=== PATIENT | female | born 1990 | race Caucasian/White ===

== ENCOUNTER 2021-02-16 20:53 | Emergency (ER) | payer OTHER ==
[2021-02-16 20:57] VITALS: BP 120/79; PULSE 83; RESP 20; TEMP 98.6
[2021-02-16] MEDS ORDERED: ONDANSETRON 4 MG ODT STARTER PACK 2 TAB BTL PO STA (21:17)
--- NOTE | 2021-02-16 21:21 | ED ---
Skin/Abscess/FB HPI - General Chief complaint: Skin/Abscess/Foreign Body Stated complaint: abscess Time Seen by Provider: 02/16/21 21:02 Source: patient Mode of arrival: ambulatory Limitations: no limitations - History of Present Illness Initial comments: Patient is a 30-year-old female presenting to the emergency department for a recheck of an abscess on her right gluteal. She states she noticed a small pimple in the area about 5 days ago, she came into the ER 2 days ago for an I&D. She was placed on Bactrim and Keflex and has been doing warm soaks. She states this evening about an hour prior to arrival she noticed a lot of drainage from the area including blood and "abscessed tissue." Her family members became concerned and told her she has come back in for reevaluation. During her previous ER visit they did outline the area and she states the redness has not been outside of the mind area. She's had no fevers, she's had some mild nausea from the antibiotics. She has no diarrhea. She has no further complaints at this time. Her vital signs are stable upon arrival. - Related Data Previous Rx's Medication Instructions Recorded Cephalexin [Keflex] 500 mg PO Q6HR 10 Days #40 cap 02/14/21 Sulfamethox-Tmp 800-160Mg [Bactrim 1 tab PO Q12HR #20 tab 02/14/21 DS 800-160 mg] Allergies Allergy/AdvReac Type Severity Reaction Status Date / Time Opioids - Morphine Analogues AdvReac Rapid Verified 02/16/21 20:57 Heart Rate Review of Systems ROS Statement: Those systems with pertinent positive or pertinent negative responses have been documented in the HPI. ROS Other: All systems not noted in ROS Statement are negative. Past Medical History Additional Past Medical History / Comment(s): twisted disc in back. History of Any Multi-Drug Resistant Organisms: None Reported Past Surgical History: Orthopedic Surgery Past Psychological History: ADD/ADHD Smoking Status: Never smoker Past Alcohol Use History: None Reported Past Drug Use History: None Reported General Exam - General Exam Comments Initial Comments: GENERAL: Patient is well-developed and well-nourished. Patient is nontoxic and in no acute distress. HEAD: Atraumatic, normocephalic. EYES: Pupils equal round and reactive to light, extraocular movements intact, sclera anicteric, conjunctiva are normal. Eyelids were unremarkable. LUNGS: Unlabored respirations. Breath sounds clear to auscultation bilaterally and equal. No wheezes rales or rhonchi. HEART: Regular rate and rhythm without murmurs, rubs or gallops. ABDOMEN: Soft, nontender, normoactive bowel sounds. No guarding, no rebound. No masses appreciated. MUSCULOSKELETAL: Normal extremities with adequate strength and normal range of motion, no pitting or edema. No clubbing or cyanosis. NEUROLOGICAL: Patient is alert and oriented x 3. Normal speech, normal gait. PSYCH: Normal mood, normal affect. SKIN: Warm, Dry, normal turgor. Patient has a 1 cm opened abscess on her right gluteal, there is some very mild surrounding erythema but no fluctuance, no induration. The redness is not outside of the outlined area from 2 days ago. Limitations: no limitations Course Vital Signs 02/16/21 20:54 Temperature 98.6 F Pulse Rate 83 Respiratory 20 Rate Blood Pressure 120/79 O2 Sat by Pulse 99 Oximetry Medical Decision Making - Medical Decision Making Patient is a 30-year-old female here for a recheck of an abscess on her right gluteal from 2 days ago. She had an I&D performed 2 days ago, was placed on Bactrim and Keflex. She has been taking his medications as prescribed, she's been doing warm soaks and warm compresses. She had onset of drainage about an hour prior to arrival of blood and possibly got concerned. Patient's wound looks well, does not appear to be getting worse. It is not outside of the outlined area from 2 days ago. I discussed with patient that this looks stable, recommended continue with her antibiotics. I will give her some Zofran for the nausea. Return parameters were discussed with her and she verbalized understanding. She doesn't a point with her PCP in a few days. Case discussed with Dr. Serrano. Disposition Clinical Impression: Abscess Disposition: HOME SELF-CARE Condition: Stable Instructions (If sedation given, give patient instructions): Abscess Incision and Drainage (ED) Additional Instructions: Please return to the Emergency Department if symptoms worsen or any other concerns. Continue with your already prescribed antibiotics. May take Zofran every 8 hrs for any nausea or vomiting. Follow up with your primary care physician. Is patient prescribed a controlled substance at d/c from ED?: No Referrals: Tiffani Rhoades DO [Primary Care Provider] - 1-2 days Time of Disposition: 21:21
== END 2021-02-16 21:34 | disposition home or self-care (01) ==
LOC: EC 20:53
DX: L02.31 Cutaneous abscess of buttock (principal); F90.9 Attention-deficit hyperactivity disorder, unspecified type
CPT/HCPCS: 99282; S0119

== ENCOUNTER 2022-11-28 21:03 | Inpatient (IN) | payer OTHER ==
[2022-11-28] MEDS ORDERED: SODIUM CHLORIDE 0.9% 1,000 ML IV ONE (22:01)
--- NOTE | 2022-11-28 22:15 | XR ---
EXAMINATION TYPE: XR chest 2V DATE OF EXAM: 11/28/2022 10:09 PM COMPARISON: None TECHNIQUE: XR chest 2V . CLINICAL INDICATION:Female, 32 years old with history of difficulty breathing; FINDINGS: Lungs/Pleura: There is no evidence of pleural effusion, focal consolidation, or pneumothorax. Pulmonary vascularity: Unremarkable. Heart/mediastinum: Cardiomediastinal silhouette is unremarkable. Musculoskeletal: No acute osseous pathology. IMPRESSION: No acute cardiopulmonary disease/process.
--- NOTE | 2022-11-28 22:25 | ED ---
SOB HPI - General Chief Complaint: Shortness of Breath Stated Complaint: Shortness of breath, nausea Time Seen by Provider: 11/28/22 21:41 Source: patient Mode of arrival: ambulatory Limitations: no limitations - History of Present Illness Initial Comments: Patient is a 32-year-old female presenting with chief complaint of shortness of breath. Patient states that around 5:30 she started experiencing sudden onset shortness of breath and chest pressure. Her fitness watch was reading a resting heart rate of above 100. Patient did not feel a sense of palpitations. She states that she was also experiencing nausea and vomiting at this time which has since resolved. She states that the pain has significantly improved but she is continuing to have shortness of breath, this is only mildly improved. Denies any recent travel, recent surgery, control pills. No history of blood clots. No lower extremity swelling. No abdominal pain. - Related Data Previous Rx's Medication Instructions Recorded Cephalexin [Keflex] 500 mg PO Q6HR 10 Days #40 cap 02/14/21 Sulfamethox-Tmp 800-160Mg [Bactrim 1 tab PO Q12HR #20 tab 02/14/21 DS 800-160 mg] Allergies Allergy/AdvReac Type Severity Reaction Status Date / Time Opioids - Morphine Analogues AdvReac Rapid Verified 02/16/21 20:57 Heart Rate Review of Systems ROS Statement: Those systems with pertinent positive or pertinent negative responses have been documented in the HPI. ROS Other: All systems not noted in ROS Statement are negative. Past Medical History Additional Past Medical History / Comment(s): twisted disc in back. History of Any Multi-Drug Resistant Organisms: None Reported Past Surgical History: Orthopedic Surgery Past Psychological History: ADD/ADHD Smoking Status: Never smoker Past Alcohol Use History: None Reported Past Drug Use History: None Reported General Exam Limitations: no limitations General appearance: alert, in no apparent distress Head exam: Present: atraumatic, normocephalic, normal inspection Eye exam: Present: normal appearance, EOMI. Absent: scleral icterus, periorb ital swelling Neck exam: Present: normal inspection, full ROM Respiratory exam: Present: normal lung sounds bilaterally. Absent: respiratory distress, wheezes, rales, rhonchi, stridor Cardiovascular Exam: Present: normal rhythm, tachycardia, normal heart sounds. Absent: systolic murmur, diastolic murmur, rubs, gallop, clicks Neurological exam: Present: alert, oriented X3, CN II-XII intact Psychiatric exam: Present: normal affect, normal mood Skin exam: Present: warm, dry, intact, normal color. Absent: rash Course Vital Signs 11/28/22 11/29/22 21:12 01:01 Temperature 98.3 F Pulse Rate 119 H 108 H Respiratory 22 16 Rate Blood Pressure 123/68 112/68 O2 Sat by Pulse 96 98 Oximetry Medical Decision Making - Medical Decision Making Was pt. sent in by a medical professional or institution (, PA, [employer], urgent care, hospital, or skilled nursing...) When possible be specific @ -No Did you speak to anyone other than the patient for history (EMS, parent, family, police, friend...)? What history was obtained from this source @ -No Did you review nursing and triage notes (agree or disagree)? Why? @ -I reviewed and agree with nursing and triage notes Were old charts reviewed (outside hosp., previous admission, EMS record, old EKG, old radiological studies, urgent care reports/EKG's, skilled nursing records)? Report findings @ -No old charts were reviewed Differential Diagnosis (chest pain, altered mental status, abdominal pain women, abdominal pain men, vaginal bleeding, weakness, fever, dyspnea, syncope, headache, dizziness, GI bleed, back pain, seizure, CVA, palpatations, mental health, musculoskeletal)? @ -MDM Differential Dyspnea: Coronary syndrome, arrhythmia, tamponade, asthma, COPD, pulmonary embolism, pneumonia, pneumothorax, pulmonary effusion, anaphylaxis, diabetic ketoacidosis, flailed chest, pulmonary contusion, diaphragmatic rupture, anemia, neuromuscular this is not meant to be an all-inclusive list. EKG interpreted by me (3pts min.). @ -Sinus tachycardia ventricular rate 117. VT interval 136. QRS 86. QT 304. QTC 373. Right axis deviation. No ischemic changes. X-rays interpreted by me (1pt min.). @ -Chest x-ray shows no acute process. CT interpreted by me (1pt min.). @ -CTA of the chest shows no evidence of pulmonary embolism. There are focal ground glass pulmonary opacities. Heterogenous mass within the left upper quadrant likely adrenal in origin U/S interpreted by me (1pt. min.). @ -None done What testing was considered but not performed or refused? (CT, X-rays, U/S, labs)? Why? @ -None What meds were considered but not given or refused? Why? @ -None Did you discuss the management of the patient with other professionals (professionals i.e. , PA, [employer], lab, RT, psych nurse, hospice social worker, produce wrapper, teacher, development officer, foster care case manager)? Give summary @ -Discussed with admitting provider Cyn Sandoval Was smoking cessation discussed for >3mins.? @ -No Was critical care preformed (if so, how long)? @ -No Were there social determinants of health that impacted care today? How? (Homelessness, low income, unemployed, alcoholism, drug addiction, transportation, low edu. Level, literacy, decrease access to med. care, snf, re hab)? @ -No Was there de-escalation of care discussed even if they declined (Discuss DNR or withdrawal of care, Hospice)? DNR status @ -No What co-morbidities impacted this encounter? (DM, HTN, Smoking, COPD, CAD, Cancer, CVA, ARF, Chemo, Hep., AIDS, mental health diagnosis, sleep apnea, morbid obesity)? @ -None Was patient admitted / discharged? Hospital course, mention meds given and route, prescriptions, significant lab abnormalities, going to OR and other pertinent info. @ -Patient is a 32-year-old female presenting with chief complaint of shortness of breath and chest pain that started abruptly this evening. On physical examination patient is tachycardic, heart and lungs are clear to auscultation. Lab work shows WBC 16.9. D-dimer is 2.22 and troponin is 0.206. CTA showed no pulmonary embolism, there is a left upper quadrant mass likely adrenal in origin. Elevated troponin likely due to demand ischemia, patient is prophylactically placed on heparin after discussion with my attending physician. Urine shows evidence of UTI, patient given 1 g of Rocephin. Case was discussed with Cyn Sandoval from [facility] hospitalist group who accepted admission. Patient is agreeable with this plan. I discussed this case in detail with my attending Dr. Howard. Undiagnosed new problem with uncertain prognosis? @ -No Drug Therapy requiring intensive monitoring for toxicity (Heparin, Nitro, Insulin, Cardizem)? @ -No Were any procedures done? @ -No Diagnosis/symptom? @ -Adrenal mass Acute, or Chronic, or Acute on Chronic? @ -Acute Uncomplicated (without systemic symptoms) or Complicated (systemic symptoms)? @ Complicated Side effects of treatment? @ -No Exacerbation, Progression, or Severe Exacerbation? @ -No Poses a threat to life or bodily function? How? (Chest pain, USA, MD, pneumonia, PE, COPD, DKA, ARF, appy, cholecystitis, CVA, Diverticulitis, Homicidal, Suicidal, threat to staff... and all critical care pts) @ -Potentially Diagnosis/symptom? @Elevated troponin Acute, or Chronic, or Acute on Chronic? @Acute Uncomplicated (without systemic symptoms) or Complicated (systemic symptoms)? @Complicated Side effects of treatment? @ none Exacerbation, Progression, or Severe Exacerbation] @ no Poses a threat to life or bodily function? @yes - Lab Data Result diagrams: 11/28/22 20:00 11/28/22 22:20 Lab Results 11/28/22 11/28/22 11/28/22 Range/Units 20:00 20:00 22:20 WBC 16.9 H (3.8-10.6) k/uL RBC 5.42 H (3.80-5.40) m/uL Hgb 16.7 H (11.4-16.0) gm/dL Hct 49.9 H (34.0-46.0) % MCV 92.1 (80.0-100.0) fL MCH 30.8 (25.0-35.0) pg MCHC 33.5 (31.0-37.0) g/dL RDW 13.4 (11.5-15.5) % MPV 10.1 PT (9.0-12.0) sec INR (<1.2) APTT (22.0-30.0) sec D-Dimer (<0.60) mg/L FEU Sodium 138 (137-145) mmol/L Potassium 4.8 (3.5-5.1) mmol/L Chloride 101 (98-107) mmol/L Carbon Dioxide 26 (22-30) mmol/L Anion Gap 11 mmol/L BUN 23 H (7-17) mg/dL Creatinine 0.93 (0.52-1.04) mg/dL Est GFR (CKD-EPI)AfAm >90 (>60 ml/min/1.73 sqM) Est GFR (CKD-EPI)NonAf 83 (>60 ml/min/1.73 sqM) Glucose 116 H (74-99) mg/dL Plasma Lactic Acid Chung 1.4 (0.7-2.0) mmol/L Calcium 10.1 (8.4-10.2) mg/dL Magnesium 2.0 (1.6-2.3) mg/dL Total Bilirubin 0.5 (0.2-1.3) mg/dL AST 39 H (14-36) U/L ALT 34 (4-34) U/L Alkaline Phosphatase 81 (38-126) U/L Troponin I (0.000-0.034) ng/mL Total Protein 8.1 (6.3-8.2) g/dL Albumin 4.7 (3.5-5.0) g/dL Urine Color Urine Appearance (Clear) Urine pH (5.0-8.0) Ur Specific [place] (1.001-1.035) Urine Protein (Negative) Urine Glucose (UA) (Negative) Urine Ketones (Negative) Urine Blood (Negative) Urine Nitrite (Negative) Urine Bilirubin (Negative) Urine Urobilinogen (<2.0) mg/dL Ur Leukocyte Esterase (Negative) Urine RBC (0-5) /hpf Urine WBC (0-5) /hpf Urine WBC Clumps Ur Squamous Epith Cells (0-4) /hpf Urine Bacteria (None) /hpf Hyaline Casts (0-2) /lpf Urine Mucus (None) /hpf Urine Yeast (Budding) Urine HCG, Qual (Not Detectd) Coronavirus (PCR) (Not Detectd) 11/28/22 11/28/22 11/28/22 Range/Units 22:20 22:33 22:40 WBC (3.8-10.6) k/uL RBC (3.80-5.40) m/uL Hgb (11.4-16.0) gm/dL Hct (34.0-46.0) % MCV (80.0-100.0) fL MCH (25.0-35.0) pg MCHC (31.0-37.0) g/dL RDW (11.5-15.5) % MPV PT 10.3 (9.0-12.0) sec INR 1.0 (<1.2) APTT 25.1 (22.0-30.0) sec D-Dimer 2.22 H (<0.60) mg/L FEU Sodium (137-145) mmol/L Potassium (3.5-5.1) mmol/L Chloride (98-107) mmol/L Carbon Dioxide (22-30) mmol/L Anion Gap mmol/L BUN (7-17) mg/dL Creatinine (0.52-1.04) mg/dL Est GFR (CKD-EPI)AfAm (>60 ml/min/1.73 sqM) Est GFR (CKD-EPI)NonAf (>60 ml/min/1.73 sqM) Glucose (74-99) mg/dL Plasma Lactic Acid Chung (0.7-2.0) mmol/L Calcium (8.4-10.2) mg/dL Magnesium (1.6-2.3) mg/dL Total Bilirubin (0.2-1.3) mg/dL AST (14-36) U/L ALT (4-34) U/L Alkaline Phosphatase (38-126) U/L Troponin I 0.206 H* (0.000-0.034) ng/mL Total Protein (6.3-8.2) g/dL Albumin (3.5-5.0) g/dL Urine Color Yellow Urine Appearance Cloudy H (Clear) Urine pH 5.5 (5.0-8.0) Ur Specific [place] 1.022 (1.001-1.035) Urine Protein 3+ H (Negative) Urine Glucose (UA) Negative (Negative) Urine Ketones Negative (Negative) Urine Blood Negative (Negative) Urine Nitrite Negative (Negative) Urine Bilirubin Negative (Negative) Urine Urobilinogen <2.0 (<2.0) mg/dL Ur Leukocyte Esterase Large H (Negative) Urine RBC 14 H (0-5) /hpf Urine WBC 46 H (0-5) /hpf Urine WBC Clumps [employer] Ur Squamous Epith Cells 12 H (0-4) /hpf Urine Bacteria Rare H (None) /hpf Hyaline Casts 9 H (0-2) /lpf Urine Mucus Many H (None) /hpf Urine Yeast (Budding) [employer] Urine HCG, Qual (Not Detectd) Coronavirus (PCR) (Not Detectd) 11/28/22 11/29/22 Range/Units 22:40 00:43 WBC (3.8-10.6) k/uL RBC (3.80-5.40) m/uL Hgb (11.4-16.0) gm/dL Hct (34.0-46.0) % MCV (80.0-100.0) fL MCH (25.0-35.0) pg MCHC (31.0-37.0) g/dL RDW (11.5-15.5) % MPV PT (9.0-12.0) sec INR (<1.2) APTT (22.0-30.0) sec D-Dimer (<0.60) mg/L FEU Sodium (137-145) mmol/L Potassium (3.5-5.1) mmol/L Chloride (98-107) mmol/L Carbon Dioxide (22-30) mmol/L Anion Gap mmol/L BUN (7-17) mg/dL Creatinine (0.52-1.04) mg/dL Est GFR (CKD-EPI)AfAm (>60 ml/min/1.73 sqM) Est GFR (CKD-EPI)NonAf (>60 ml/min/1.73 sqM) Glucose (74-99) mg/dL Plasma Lactic Acid Chung (0.7-2.0) mmol/L Calcium (8.4-10.2) mg/dL Magnesium (1.6-2.3) mg/dL Total Bilirubin (0.2-1.3) mg/dL AST (14-36) U/L ALT (4-34) U/L Alkaline Phosphatase (38-126) U/L Troponin I (0.000-0.034) ng/mL Total Protein (6.3-8.2) g/dL Albumin (3.5-5.0) g/dL Urine Color Urine Appearance (Clear) Urine pH (5.0-8.0) Ur Specific [place] (1.001-1.035) Urine Protein (Negative) Urine Glucose (UA) (Negative) Urine Ketones (Negative) Urine Blood (Negative) Urine Nitrite (Negative) Urine Bilirubin (Negative) Urine Urobilinogen (<2.0) mg/dL Ur Leukocyte Esterase (Negative) Urine RBC (0-5) /hpf Urine WBC (0-5) /hpf Urine WBC Clumps Ur Squamous Epith Cells (0-4) /hpf Urine Bacteria (None) /hpf Hyaline Casts (0-2) /lpf Urine Mucus (None) /hpf Urine Yeast (Budding) Urine HCG, Qual Not Detected (Not Detectd) Coronavirus (PCR) Not Detected (Not Detectd) - EKG Data -: EKG Interpreted by Me EKG Comments: Sinus tachycardia ventricular rate 117. VT interval 136. QRS 86. QTc interval 4. QTC 373. Right axis deviation. Disposition Clinical Impression: Adrenal mass, Elevated troponin Disposition: ADMITTED IP TO THIS HOSP Condition: Fair Referrals: Tiffani Rhoades DO [Primary Care Provider] - 1-2 days Time of Disposition: 00:36
[2022-11-28 22:56] LABS: Partial Thromboplastin Time 25.1 sec (22.0-30.0); Prothrombin Time 10.3 sec (9.0-12.0)
[2022-11-28 23:02] LABS: ALT 34 U/L (4-34); AST 39 U/L (14-36); African American GFR (CKD) >90 (>60 ml/min/1.73 sqM); Albumin 4.7 g/dL (3.5-5.0); Alkaline Phosphatase 81 U/L (38-126); Anion Gap 11 mmol/L; Blood Urea Nitrogen 23 mg/dL (7-17); Calcium 10.1 mg/dL (8.4-10.2); Carbon Dioxide 26 mmol/L (22-30); Chloride 101 mmol/L (98-107); Glucose 116 mg/dL (74-99); Non-African American GFR(CKD) 83 (>60 ml/min/1.73 sqM); Potassium 4.8 mmol/L (3.5-5.1); Sodium 138 mmol/L (137-145); Total Bilirubin 0.5 mg/dL (0.2-1.3); Total Protein 8.1 g/dL (6.3-8.2)
[2022-11-28 23:05] LABS: Basophils # (A) 0.1 k/uL (0-0.2); Basophils % (A) 1 %; Eosinophils % (A) 0 %; HCT 49.9 % (34.0-46.0); HGB 16.7 gm/dL (11.4-16.0); Lymphocytes # (A) 1.6 k/uL (1.0-4.8); Lymphocytes % (A) 9 %; MCH 30.8 pg (25.0-35.0); MCHC 33.5 g/dL (31.0-37.0); MCV 92.1 fL (80.0-100.0); Mean Platelet Volume 10.1; Monocytes # (A) 1.2 k/uL (0-1.0); Monocytes % (A) 7 %; Neutrophils # (A) 13.8 k/uL (1.3-7.7); Neutrophils % (A) 82 %; Platelet Count 179 k/uL (150-450); RBC 5.42 m/uL (3.80-5.40); RDW 13.4 % (11.5-15.5); WBC 16.9 k/uL (3.8-10.6)
[2022-11-28 23:16] LABS: Appearance,Urine Cloudy (Clear); Bacteria,Urine Rare /hpf; Bilirubin,Urine Negative (Negative); Blood,Urine Negative (Negative); Color,Urine Yellow; Glucose,Urine (UA) Negative (Negative); Hyaline Casts,Urine 9 /lpf (0-2); Ketones,Urine Negative (Negative); Leukocyte Esterase,Urine Large (Negative); Mucus,Urine Many /hpf; Nitrite,Urine Negative (Negative); PH, Urine 5.5 (5.0-8.0); Protein,Urine 3+ (Negative); RBC,Urine 14 /hpf (0-5); Specific Gravity,Urine 1.022 (1.001-1.035); Squamous Epithelial Cell,Urine 12 /hpf (0-4); Urobilinogen,Urine <2.0 mg/dL (<2.0); WBC,Urine 46 /hpf (0-5)
--- NOTE | 2022-11-28 23:57 | CT ---
EXAMINATION TYPE: CT chest angio for PE CT DLP: 460.5 mGycm, Automated exposure control for dose reduction was used. DATE OF EXAM: 11/28/2022 11:39 PM COMPARISON: Chest radiograph from same day. CLINICAL INDICATION:Female, 32 years old with history of CP, SOB; r/o pe TECHNIQUE/CONTRAST: CTA scan of the thorax is performed with IV Contrast, patient injected with 58 mL of Isovue 370, pulm onary embolism protocol. MIP images are created and reviewed. FINDINGS: Pulmonary Artery: There is no evidence for a filling defect within the pulmonary vasculature to sugge st acute pulmonary embolism. The pulmonary artery is of normal size. Lungs/Pleura: Multifocal groundglass airspace opacities, most conspicuous within the central left upp er lobe (series 506, image 35). No pneumothorax or pleural effusion. Airway: Large airways are patent. Heart: Heart is within normal limits for size.. Vasculature: No evidence of aortic aneurysm. Mediastinum: No gross evidence of adenopathy. Musculoskeletal: No acute osseous abnormalities Soft Tissues: Unremarkable. Lower neck: No significant findings. Upper Abdomen: Heterogeneously enhancing mass within the left upper quadrant measures at least 8.8 x 8.8 x 9.8 cm (series 501, image 141 and series 502, image 73). Mass demonstrates areas of central low attenuation, likely necrosis. A left adrenal gland is not visualized. Mass is distinct from the left kidney. IMPRESSION: 1. No evidence of pulmonary embolism. 2. Focal groundglass pulmonary opacities concerning for acute inflammatory versus atypical pneumonia. 3. Heterogeneous mass within the left upper quadrant, presumably adrenal in origin. Recommend further evaluation with CT/MRI adrenal mass protocol versus CT/PET imaging.
[2022-11-29] MEDS ORDERED: HEPARIN SODIUM 1,000 UN/ML (10ML VL) IV PRN (00:15)
[2022-11-29] MEDS ORDERED: HEPARIN SODIUM 1,000 UN/ML (10ML VL) IV ONE (00:15)
[2022-11-29] MEDS ORDERED: NALOXONE 0.4 MG/ML 1 ML VIAL IV PRN (00:33)
[2022-11-29] MEDS: HEPARIN SOD,PORK IN 0.45% NACL 25,000 UNIT in 0.45% NACL 1 250ML.BAG IV SCH (00:52)
[2022-11-29] MEDS ORDERED: cefTRIAXone IN SWFI 1,000 MG/10 ML SYRINGE IVP STA (01:07)
[2022-11-29] MEDS ORDERED: IOPAMIDOL CONTRAST (ORAL USE) VIAL PO PRN ×2 (09:16→10:34)
[2022-11-29] MEDS ORDERED: ALPRAZolam 0.25 MG TAB PO PRN (14:00)
[2022-11-29] MEDS ORDERED: ALPRAZolam 0.5 MG TAB PO PRN (14:00)
[2022-11-29] MEDS ORDERED: NITROGLYCERIN SL TABS 0.4 MG TAB SUBLINGUAL PRN (14:00)
--- NOTE | 2022-11-29 14:37 | P.HPIM ---
History of Present Illness H&P Date: 11/29/22 Chief Complaint: Nausea vomiting, tachycardia This is a 32-year-old female with past medical history significant for morbid obesity, BMI 31.1, panic attacks, ADD/ADHD and multiple other medical issues presented to the ER with complaints of nausea, vomiting and tachycardia. Reports family history of [employer]. Reports on Tuesday after work, consumed 2 bagels with cream cheese, later developed nausea and vomiting 3-4 times, laid down, symptoms eased up. Shortly thereafter developed sudden shortness of breath most notably with deep inspiration denies any palpitations but noticed on her Smart watch that her heart rate was up to 166 accompanied by hot flashes. Proceeded to the E R. On admission maintaining O2 sats in the high 90s on room air, heart rate 119, afebrile, respiratory rate 16-22, blood pressure stable. Nausea and vomiting have resolved. Denies abdominal pain. Denies cough or congestion. Denies any recent travel or being around anyone ill. Denies history of blood clots, denies being on control pills. Denies chest pain, palpitations. Denies lightheadedness, dizziness or focal deficits. Denies syncope. D-dimer 2.22,Chest CTA reported no evidence of pulmonary embolism, focal groundglass pulmonary opacities left upper lobe, heterogenous mass within the left upper quadrant presumably adrenal in origin. Chest x-ray reported no acute cardiopulmonary disease/process. EKG sinus tachycardia, heart rate 117, troponin 0.206, 0.433, 0.372. Electrolytes within normal limits, BUN 23, creatinine 0.93, glucose 116. Coronavirus not detected, UA reporting rare bacteria, large leukocytes, negative nitrates. Maintained on heparin drip. Review of Systems ROS Statement: Those systems with pertinent positive or pertinent negative responses have been documented in the HPI. ROS Other: All systems not noted in ROS Statement are negative. Past Medical History Additional Past Medical History / Comment(s): twisted disc in back, arthritis of R. knee/shoulder/elbow, Multiple bone tumors (noncancerous), panic attacks History of Any Multi-Drug Resistant Organisms: MRSA Date of last positivie culture/infection: 2001 MDRO Source:: Legs Past Surgical History: Orthopedic Surgery Additional Past Surgical History / Comment(s): ortho surgery x2 Past Anesthesia/Blood Transfusion Reactions: Unable to Obtain Past Psychological History: ADD/ADHD Additional Psychological History / Comment(s): panic attacks Smoking Status: Never smoker Past Alcohol Use History: None Reported Past Drug Use History: None Reported - Past Family History Mother Additional Family Medical History / Comment(s): uterine or cervical cancer Medications and Allergies Home Medications Medication Instructions Recorded Confirmed Type No Known Home Medications 11/29/22 11/29/22 History Allergies Allergy/AdvReac Type Severity Reaction Status Date / Time Opioids - Morphine Analogues AdvReac Rapid Verified 11/29/22 06:52 Heart Rate Physical Exam Vitals: Vital Signs Temp Pulse Pulse Resp BP BP Pulse Ox 11/29/22 11:45 98.1 F 91 20 108/74 98 11/29/22 08:26 98 F 92 20 119/80 94 L 11/29/22 04:20 97.9 F 116 H 17 113/75 96 11/29/22 02:00 107 H 11/29/22 01:40 98.0 F 110 H 18 117/74 98 11/29/22 01:33 98.0 F 106 H 18 117/74 95 11/29/22 01:01 108 H 16 112/68 98 11/28/22 21:12 98.3 F 119 H 22 123/68 96 Intake and Output 11/28/22 11/29/22 11/29/22 22:59 06:59 14:59 Intake Total 205.167 Balance 205.167 Intake: Intake, IV Titration 85.167 Amount Heparin Sod,Pork in 0.45% 85.167 NaCl 25,000 unit In 0.45 % NaCl 1 250ml.bag @ 11. 9168 UNITS/KG/HR 10 mls/ hr IV .Q24H [facility] Rx#: [id number] Oral 120 Other: Voiding Method Toilet # Voids 1 Weight 83.915 kg 82.2 kg PHYSICAL EXAM: VITAL SIGNS: [As above] GENERAL: Sitting up in bed, no acute distress HEENT: Normocephalic, atraumatic Conjunctivae normal. eyes normal. MMM. NECK: Supple, No JVD. No thyroid enlargement. No LNs CARDIOVASCULAR: S1, S2 regular. Tachycardic, No murmur RESPIRATION: Breath sounds diminished in the bases. No rhonchi or crackles. No bronchial breathing. ABDOMEN: Soft, nontender, nondistended. No guarding. no masses palpable. No ascites, No hepatosplenomegaly.Bowel sounds heard. LEGS: No edema. no swelling PSYCHIATRY: Alert and oriented X3, mood and affect normal. NERVOUS SYSTEM: Cranial N 2-12 grossly normal.No focal deficits. Strength and sensation grossly intact. Skin: Warm and dry, no rash Results CBC & Chem 7: 11/28/22 20:00 11/28/22 22:20 Labs: Abnormal Lab Results - Last 24 Hours (Table) 11/28/22 11/28/22 11/28/22 Range/Units 20:00 22:20 22:20 WBC 16.9 H (3.8-10.6) k/uL RBC 5.42 H (3.80-5.40) m/uL Hgb 16.7 H (11.4-16.0) gm/dL Hct 49.9 H (34.0-46.0) % Neutrophils # 13.8 H (1.3-7.7) k/uL Monocytes # 1.2 H (0-1.0) k/uL APTT (22.0-30.0) sec D-Dimer (<0.60) mg/L FEU BUN 23 H (7-17) mg/dL Glucose 116 H (74-99) mg/dL AST 39 H (14-36) U/L Troponin I 0.206 H* (0.000-0.034) ng/mL Urine Appearance (Clear) Urine Protein (Negative) Ur Leukocyte Esterase (Negative) Urine RBC (0-5) /hpf Urine WBC (0-5) /hpf Ur Squamous Epith Cells (0-4) /hpf Urine Bacteria (None) /hpf Hyaline Casts (0-2) /lpf Urine Mucus (None) /hpf 11/28/22 11/28/22 11/29/22 Range/Units 22:33 22:40 02:52 WBC (3.8-10.6) k/uL RBC (3.80-5.40) m/uL Hgb (11.4-16.0) gm/dL Hct (34.0-46.0) % Neutrophils # (1.3-7.7) k/uL Monocytes # (0-1.0) k/uL APTT (22.0-30.0) sec D-Dimer 2.22 H (<0.60) mg/L FEU BUN (7-17) mg/dL Glucose (74-99) mg/dL AST (14-36) U/L Troponin I 0.433 H* (0.000-0.034) ng/mL Urine Appearance Cloudy H (Clear) Urine Protein 3+ H (Negative) Ur Leukocyte Esterase Large H (Negative) Urine RBC 14 H (0-5) /hpf Urine WBC 46 H (0-5) /hpf Ur Squamous Epith Cells 12 H (0-4) /hpf Urine Bacteria Rare H (None) /hpf Hyaline Casts 9 H (0-2) /lpf Urine Mucus Many H (None) /hpf 11/29/22 11/29/22 Range/Units 08:06 08:06 WBC (3.8-10.6) k/uL RBC (3.80-5.40) m/uL Hgb (11.4-16.0) gm/dL Hct (34.0-46.0) % Neutrophils # (1.3-7.7) k/uL Monocytes # (0-1.0) k/uL APTT 43.5 H (22.0-30.0) sec D-Dimer (<0.60) mg/L FEU BUN (7-17) mg/dL Glucose (74-99) mg/dL AST (14-36) U/L Troponin I 0.372 H* (0.000-0.034) ng/mL Urine Appearance (Clear) Urine Protein (Negative) Ur Leukocyte Esterase (Negative) Urine RBC (0-5) /hpf Urine WBC (0-5) /hpf Ur Squamous Epith Cells (0-4) /hpf Urine Bacteria (None) /hpf Hyaline Casts (0-2) /lpf Urine Mucus (None) /hpf Thrombosis Risk Factor Assmnt - Choose All That Apply Any of the Below Risk Factors Present?: No Other Risk Factors: No Thrombosis Risk Factor Assessment Level: Very Low Risk Assessment and Plan Assessment: Sinus tachycardia, elevated troponin Incidental finding adrenal mass, ruling out pheochromocytoma Morbid obesity, BMI 31.1 Anxiety, panic attacks, history of Plan: Continue on current medication regime ,monitoring and symptomatic treatment. Echo, CT abdomen and pelvis pending. Oncology and cardiology consult in place with recommendations pending. Pheochromocytoma workup in progress; 24-hour metanephrines and vanillyandelia acid ordrered. The impression and plan of care has been dictated as directed. : I performed a history and examination of this patient, discussed the same with the dictator. I agree with the dictator's note ,documented as a scribe. Any additional findings or plans will be noted.
[2022-11-29] MEDS: PANTOPRAZOLE 40 MG/10 ML VIAL IVP SCH (15:06)
[2022-11-29] MEDS: ASPIRIN 325 MG TAB PO STA (19:35)
[2022-11-29] MEDS: ATORVASTATIN 80 MG TAB PO STA (19:35)
--- NOTE | 2022-11-29 19:46 | P.CONS ---
History of Present Illness - Reason for Consult Consult date: 11/29/22 Adrenal mass Requesting physician: Jesus Lopez - Chief Complaint SOB, N,V - History of Present Illness This is a 32-year-old female with no significant PHM requiring medications, who presented to the ER with complaints of nausea, vomiting and SOB. She had nausea and vomiting after eating associated with diaphoresis and heart racing-up to 160's on her fitness watch, it was hard to breathe at times which was a newer symptom. She has had this same series of symptoms occur many times in the past few years, nearly monthly, the symptoms usually resolve on their own within an hour or so but, this time they did not. In the ER she was found to be tachycardic, O2 WNL, vital otherwise stable. D-dimer 2.22, CTA was done for the chest pain/palpitations, reported no evidence of pulmonary embolism, focal ground glass opacities left upper lobe, an 8.8 x 8.8 x 9.8cm heterogenous mass was reported, within the left upper quadrant, felt to be originating from the adrenal gland. CXR no acute process, elevated troponins, heparin drip started. Hgb/Hct elevated at 16.7 and 49. 9, WBC 16.9 with neutrophilia. She reports occasional headaches, flushing, no dizziness, no recent illness, changes in bowel or bladder habits. Her N,V and SOB are better since admit. Review of Systems 10 point ROS is neg except as stated in HPI Past Medical History Additional Past Medical History / Comment(s): twisted disc in back, arthritis of R. knee/shoulder/elbow, Multiple bone tumors (noncancerous), panic attacks History of Any Multi-Drug Resistant Organisms: MRSA Year Discovered:: 2001 MDRO Source:: Legs Past Surgical History: Orthopedic Surgery Additional Past Surgical History / Comment(s): ortho surgery x2 Past Anesthesia/Blood Transfusion Reactions: Unable to Obtain Past Psychological History: ADD/ADHD Additional Psychological History / Comment(s): panic attacks Smoking Status: Never smoker Past Alcohol Use History: None Reported Past Drug Use History: None Reported Additional History: Maternal grandmother leukemia, maternal grandfather unknown metastatic cancer - Past Family History Mother Additional Family Medical History / Comment(s): uterine or cervical cancer Medications and Allergies Home Medications Medication Instructions Recorded Confirmed Type No Known Home Medications 11/29/22 11/29/22 History Allergies Allergy/AdvReac Type Severity Reaction Status Date / Time Opioids - Morphine Analogues AdvReac Rapid Verified 11/29/22 06:52 Heart Rate Physical Exam Vitals: Vital Signs Temp Pulse Pulse Resp BP BP Pulse Ox 11/29/22 08:26 98 F 92 20 119/80 94 L 11/29/22 04:20 97.9 F 116 H 17 113/75 96 11/29/22 02:00 107 H 11/29/22 01:40 98.0 F 110 H 18 117/74 98 11/29/22 01:33 98.0 F 106 H 18 117/74 95 11/29/22 01:01 108 H 16 112/68 98 11/28/22 21:12 98.3 F 119 H 22 123/68 96 Intake and Output 11/28/22 11/29/22 11/29/22 22:59 06:59 14:59 Other: Voiding Method Toilet # Voids 1 Weight 83.915 kg 82.2 kg - Constitutional General appearance: average body habitus, cooperative, no acute distress - EENT Eyes: anicteric sclerae, EOMI ENT: hearing grossly normal, normal oropharynx - Neck Neck: no lymphadenopathy - Respiratory Respiratory: bilateral: CTA - Cardiovascular Rhythm: regular Heart sounds: normal: S1, S2 Abnormal Heart Sounds: no systolic murmur, no diastolic murmur, no rub, no S3 Gallop, no S4 Gallop, no click, no other leg Peripheral Edema: bilateral: None - Gastrointestinal General gastrointestinal: no absent bowel sounds, no decreased bowel sounds, no distended, no hepatomegaly, no hyperactive bowel sounds, normal bowel sounds, no organomegaly, no rigid, no scaphoid, soft, no splenomegaly, no tenderness, no umbilical hernia, no ventral hernia - Integumentary Integumentary: normal - Neurologic Neurologic: CNII-XII intact - Musculoskeletal Musculoskeletal: strength equal bilaterally - Psychiatric Psychiatric: A&O x's 3, appropriate affect, intact judgment & insight Results CBC & Chem 7: 11/28/22 20:00 11/28/22 22:20 Labs: Abnormal Lab Results - Last 24 Hours (Table) 11/28/22 11/28/22 11/28/22 Range/Units 20:00 22:20 22:20 WBC 16.9 H (3.8-10.6) k/uL RBC 5.42 H (3.80-5.40) m/uL Hgb 16.7 H (11.4-16.0) gm/dL Hct 49.9 H (34.0-46.0) % Neutrophils # 13.8 H (1.3-7.7) k/uL Monocytes # 1.2 H (0-1.0) k/uL APTT (22.0-30.0) sec D-Dimer (<0.60) mg/L FEU BUN 23 H (7-17) mg/dL Glucose 116 H (74-99) mg/dL AST 39 H (14-36) U/L Troponin I 0.206 H* (0.000-0.034) ng/mL Urine Appearance (Clear) Urine Protein (Negative) Ur Leukocyte Esterase (Negative) Urine RBC (0-5) /hpf Urine WBC (0-5) /hpf Ur Squamous Epith Cells (0-4) /hpf Urine Bacteria (None) /hpf Hyaline Casts (0-2) /lpf Urine Mucus (None) /hpf 11/28/22 11/28/22 11/29/22 Range/Units 22:33 22:40 02:52 WBC (3.8-10.6) k/uL RBC (3.80-5.40) m/uL Hgb (11.4-16.0) gm/dL Hct (34.0-46.0) % Neutrophils # (1.3-7.7) k/uL Monocytes # (0-1.0) k/uL APTT (22.0-30.0) sec D-Dimer 2.22 H (<0.60) mg/L FEU BUN (7-17) mg/dL Glucose (74-99) mg/dL AST (14-36) U/L Troponin I 0.433 H* (0.000-0.034) ng/mL Urine Appearance Cloudy H (Clear) Urine Protein 3+ H (Negative) Ur Leukocyte Esterase Large H (Negative) Urine RBC 14 H (0-5) /hpf Urine WBC 46 H (0-5) /hpf Ur Squamous Epith Cells 12 H (0-4) /hpf Urine Bacteria Rare H (None) /hpf Hyaline Casts 9 H (0-2) /lpf Urine Mucus Many H (None) /hpf 11/29/22 Range/Units 08:06 WBC (3.8-10.6) k/uL RBC (3.80-5.40) m/uL Hgb (11.4-16.0) gm/dL Hct (34.0-46.0) % Neutrophils # (1.3-7.7) k/uL Monocytes # (0-1.0) k/uL APTT 43.5 H (22.0-30.0) sec D-Dimer (<0.60) mg/L FEU BUN (7-17) mg/dL Glucose (74-99) mg/dL AST (14-36) U/L Troponin I (0.000-0.034) ng/mL Urine Appearance (Clear) Urine Protein (Negative) Ur Leukocyte Esterase (Negative) Urine RBC (0-5) /hpf Urine WBC (0-5) /hpf Ur Squamous Epith Cells (0-4) /hpf Urine Bacteria (None) /hpf Hyaline Casts (0-2) /lpf Urine Mucus (None) /hpf Chest x-ray: report reviewed CT scan - chest: report reviewed, image reviewed Assessment and Plan (1) Adrenal mass Current Visit: Yes Status: Acute Priority: High Code(s): E27.8 - OTHER SPECIFIED DISORDERS OF ADRENAL GLAND SNOMED Code(s): 026499010 Plan: Lt adrenal mass -Large 8.8x8.8x9.8 lt adrenal mass -found incidentally on CAT -CT AP ordered for better visualization -Hx suspicious for pheochromocytoma. 24 hour Urine collection for metanephrines and catacholamines ordered, as well as serum, ordered Doctor attests: I performed a history and physical examination of this patient, developed impression and plan of care. Discussed with dictator. I agree with dictators note, documented as a scribe.
--- NOTE | 2022-11-29 20:11 | P.CRDCN ---
History of Present Illness Consult date: 11/29/22 Consult reason: chest pain, shortness of breath History of present illness: History of present illness: Patient is a pleasant 32-year-old female with significant past medical history of ADHD, to prior knee surgeries, and chronic back pain presented to the emergency department with complaints of shortness of breath, chest pressure, nausea, vomiting. She denies any significant family history of heart disease. She was never a smoker, rarely drinks alcohol, denies any drug use. For that over the past couple years she has had episodes of heart palpitations with nausea and vomiting occasionally headache. She has seen her PCP for this and has worn a 24-hour Holter monitor in the past that was reportedly unremarkable. She reports that she gets these episodes every couple months. Yesterday she was able to go to work and she got home around 4:30 PM and ate some food, 5:30 PM she felt nauseous and vomited 2, and then approximately 15 minutes later she vomited again. She denied any palpitations at that time. Then around 6:30 she began to feel short of breath but she couldn't catch her breath, developed chest pressure/ dull pain and her heart rates increased to 110s to 160s. She reports that the chest pressure lasted until about 2:30 AM. She reports having some hot flashes overnight and still is feeling mildly short of breath this morning but breathing has improved area and she denies any chest pain or pressure. Labs reviewed: Troponin 0.206, 0.433, 0.372; WBC 16.9, creatinine 0.93. CTA of the chest was negative for PE however revealed heterogeneous mass of left upper quadrant, presumably adrenal in origin, for which oncology was consulted. EKG shows sinus tachycardia 117 bpm. UA was positive for infection. REVIEW OF SYSTEMS: No fever or chills. No cough or expectoration. Reports shortness of breath. Reports hot flashes. No diaphoresis. Patient denies headache, dizziness, blurred vision, double vision. Patient denies any stomach discomfort. No nausea, vomiting. No hematochezia. No hematemesis. Denies any black stools or blood in his stools. Denies dysuria or hematuria. No muscle weakness or numbness. No chest pain or pressure. PHYSICAL EXAMINATION: This is a 32-year-old female in no apparent distress at the time of my examination. HEENT: Head is atraumatic, normocephalic. Pupils are equal, round. Sclerae anicteric. Conjunctivae are clear. Mucous membranes of the mouth are moist. Neck is supple. There is no jugular venous distention. No carotid bruit is heard. CHEST EXAMINATION: Lungs are clear to auscultation. No chest wall tenderness is noted on palpation or with deep breathing. HEART EXAMINATION: Heart regular rate and rhythm. S1, S2 heard. No murmurs, gallops or rub. ABDOMEN: Soft, nontender. Bowel sounds are heard. EXTREMITIES: 2+ peripheral pulses with no evidence of peripheral edema and no calf tenderness noted. NEUROLOGIC EXAMINATION: Patient is awake, alert and oriented x3. IMPRESSION AND PLAN: Elevated troponins Chest pressure Shortness of breath Left upper quadrant mass, presumable renal in origin Leukocytosis, likely related to UTI UTI PLAN: Given elevated troponins and chest pain with shortness of breath, recommend left heart catheterization mainly to r/o coronary dissection. NPO after midnight. Continue heparin drip for now. We will also check ECHO to fu rther evaluate heart function and structure. Recommend CT abd/pelvis to be held until after heart catheterization. Will follow. I am dictating on behalf of Dr. Cali Corrigan's history/physical and assessment/plan. Past Medical History Additional Past Medical History / Comment(s): twisted disc in back, arthritis of R. knee/shoulder/elbow, Multiple bone tumors (noncancerous), panic attacks History of Any Multi-Drug Resistant Organisms: MRSA Date of last positivie culture/infection: 2001 MDRO Source:: Legs Past Surgical History: Orthopedic Surgery Additional Past Surgical History / Comment(s): ortho surgery x2 Past Anesthesia/Blood Transfusion Reactions: Unable to Obtain Past Psychological History: ADD/ADHD Additional Psychological History / Comment(s): panic attacks Smoking Status: Never smoker Past Alcohol Use History: None Reported Past Drug Use History: None Reported - Past Family History Mother Additional Family Medical History / Comment(s): uterine or cervical cancer Medications and Allergies Home Medications Medication Instructions Recorded Confirmed Type No Known Home Medications 11/29/22 11/29/22 History Allergies Allergy/AdvReac Type Severity Reaction Status Date / Time Opioids - Morphine Analogues AdvReac Rapid Verified 11/29/22 06:52 Heart Rate Physical Exam Vitals: Vital Signs Temp Pulse Pulse Resp BP BP Pulse Ox 11/29/22 08:26 98 F 92 20 119/80 94 L 11/29/22 04:20 97.9 F 116 H 17 113/75 96 11/29/22 02:00 107 H 11/29/22 01:40 98.0 F 110 H 18 117/74 98 11/29/22 01:33 98.0 F 106 H 18 117/74 95 11/29/22 01:01 108 H 16 112/68 98 11/28/22 21:12 98.3 F 119 H 22 123/68 96 Intake and Output 11/28/22 11/29/22 11/29/22 22:59 06:59 14:59 Intake Total 85.167 Balance 85.167 Intake: Intake, IV Titration 85.167 Amount Heparin Sod,Pork in 0.45% 85.167 NaCl 25,000 unit In 0.45 % NaCl 1 250ml.bag @ 11. 9168 UNITS/KG/HR 10 mls/ hr IV .Q24H [facility] Rx#: [id number] Other: Voiding Method Toilet # Voids 1 Weight 83.915 kg 82.2 kg Results 11/28/22 20:00 11/28/22 22:20 Cardiac Enzymes 11/28/22 11/28/22 11/29/22 Range/Units 22:20 22:20 02:52 AST 39 H (14-36) U/L Troponin I 0.206 H* 0.433 H* (0.000-0.034) ng/mL 11/29/22 Range/Units 08:06 AST (14-36) U/L Troponin I 0.372 H* (0.000-0.034) ng/mL Coagulation 11/28/22 11/29/22 Range/Units 22:33 08:06 PT 10.3 (9.0-12.0) sec APTT 25.1 43.5 H (22.0-30.0) sec CBC 11/28/22 Range/Units 20:00 WBC 16.9 H (3.8-10.6) k/uL RBC 5.42 H (3.80-5.40) m/uL Hgb 16.7 H (11.4-16.0) gm/dL Hct 49.9 H (34.0-46.0) % Plt Count 179 (150-450) k/uL Comprehensive Metabolic Panel 11/28/22 Range/Units 22:20 Sodium 138 (137-145) mmol/L Potassium 4.8 (3.5-5.1) mmol/L Chloride 101 (98-107) mmol/L Carbon Dioxide 26 (22-30) mmol/L BUN 23 H (7-17) mg/dL Creatinine 0.93 (0.52-1.04) mg/dL Glucose 116 H (74-99) mg/dL Calcium 10.1 (8.4-10.2) mg/dL AST 39 H (14-36) U/L ALT 34 (4-34) U/L Alkaline Phosphatase 81 (38-126) U/L Total Protein 8.1 (6.3-8.2) g/dL Albumin 4.7 (3.5-5.0) g/dL Current Medications Generic Name Dose Route Start Last Admin Trade Name Freq PRN Reason Stop Dose Admin Heparin Sodium (Porcine) 0 unit 11/29/22 00:15 Heparin Sodium 1,000 Un/Ml (10ml Vl) IV PER PROTOCOL PRN Low PTT Protocol Heparin Sodium/Sodium Chloride 250 mls @ 10 mls/hr 11/29/22 00:15 11/29/22 09:23 25,000 unit/ Sodium Chloride IV 14.3 units/kg/hr .Q24H [facility] 12 mls/hr Titration Protocol 11.9168 UNITS/KG/HR Iopamidol 30 ml 11/29/22 09:16 Iopamidol Contrast (Oral Use) Vial PO 11/30/22 09:[address] Scan Naloxone HCl 0.2 mg 11/29/22 00:33 Naloxone 0.4 Mg/Ml 1 Ml Vial IV Q2M PRN Opioid Reversal Intake and Output 11/28/22 11/29/22 11/29/22 22:59 06:59 14:59 Intake Total 85.167 Balance 85.167 Intake: Intake, IV Titration 85.167 Amount Heparin Sod,Pork in 0.45% 85.167 NaCl 25,000 unit In 0.45 % NaCl 1 250ml.bag @ 11. 9168 UNITS/KG/HR 10 mls/ hr IV .Q24H [facility] Rx#: [id number] Other: Voiding Method Toilet # Voids 1 Weight 83.915 kg 82.2 kg 11/28/22 20:00 11/28/22 22:20
[2022-11-30] MEDS: ATORVASTATIN 80 MG TAB PO STA (01:23)
[2022-11-30] MEDS: ASPIRIN 325 MG TAB PO STA (01:23)
[2022-11-30] MEDS: HEPARIN SOD,PORK IN 0.45% NACL 25,000 UNIT in 0.45% NACL 1 250ML.BAG IV SCH (04:34)
[2022-11-30 05:11] LABS: Basophils % (A) 0 %; Eosinophils # (A) 0.3 k/uL (0-0.7); Eosinophils % (A) 2 %; HCT 43.1 % (34.0-46.0); Lymphocytes # (A) 3.4 k/uL (1.0-4.8); Lymphocytes % (A) 30 %; MCH 30.1 pg (25.0-35.0); MCHC 31.9 g/dL (31.0-37.0); MCV 94.5 fL (80.0-100.0); Mean Platelet Volume 8.2; Monocytes # (A) 0.8 k/uL (0-1.0); Monocytes % (A) 7 %; Neutrophils # (A) 6.5 k/uL (1.3-7.7); Neutrophils % (A) 58 %; Platelet Count 254 k/uL (150-450); RBC 4.56 m/uL (3.80-5.40); RDW 13.6 % (11.5-15.5); WBC 11.2 k/uL (3.8-10.6)
[2022-11-30 05:15] LABS: HGB 13.7 gm/dL (11.4-16.0); Partial Thromboplastin Time 65.6 sec (22.0-30.0); Prothrombin Time 10.5 sec (9.0-12.0)
[2022-11-30] MEDS ORDERED: HEPARIN SODIUM,PORCINE 10,000 UNIT in SODIUM CHLORIDE 0.9% 1,000 ML IRRIGATION PRN (07:00)
[2022-11-30] MEDS ORDERED: HEPARIN SODIUM,PORCINE 2,500 UNIT in SODIUM CHLORIDE 0.9% 250 ML IRRIGATION PRN (07:00)
[2022-11-30] MEDS ORDERED: IV FLUID CONTINUATION 1,000 ML IV ONE (08:39)
[2022-11-30] MEDS ORDERED: ASPIRIN 81 MG PO ONE (08:43)
[2022-11-30] MEDS ORDERED: MIDAZOLAM 2 MG/2 ML VIAL IVP ONE (08:45)
[2022-11-30] MEDS ORDERED: LIDOCAINE 1% INJ 10MG/ML (5 ML VIAL-PF) SQ ONE (08:46)
[2022-11-30] MEDS ORDERED: VERAPAMIL SYRINGE (5 MG/10 ML) INTRAARTER ONE (08:48)
[2022-11-30] MEDS ORDERED: HEPARIN SODIUM 1,000 UN/ML (10ML VL) IV ONE (08:51)
--- NOTE | 2022-11-30 08:51 | CA ---
Transthoracic Echo Report Name: Garth Green Age: 32 Gender: F : 1990 Exam Date: 11/29/2022 11:23 Exam Location: [facility] Ht (in): 64 Wt (lb): 181 Ordering Physician: Dalila Heredia Attending/Referring Phys: Vp [employer] Sharon Cm RDCS Procedure CPT: Indications: chest pain, sob, elevated troponins Cardiac Hx: Technical Quality: Good Contrast 1: Total Dose (mL): Contrast 2: Total Dose (mL): MEASUREMENTS (Male / Female) Normal Values 2D ECHO LV Diastolic Diameter PLAX 4.5 cm 4.2 - 5.9 / 3.9 - 5.3 cm LV Systolic Diameter PLAX 3.2 cm IVS Diastolic Thickness 1.0 cm 0.6 - 1.0 / 0.6 - 0.9 cm LVPW Diastolic Thickness 1.2 cm 0.6 - 1.0 / 0.6 - 0.9 cm LV Relative Wall Thickness 0.5 RV Internal Dim ED PLAX 3.1 cm LA Systolic Diameter LX 3.4 cm 3.0 - 4.0 / 2.7 - 3.8 cm LV Diastolic Volume MOD 4C 79.2 cm??? LV Systolic Volume MOD 4C 34.4 cm??? LV Ejection Fraction MOD 4C 56.6 % LV Diastolic Length 4C 7.3 cm LV Systolic Length 4C 6.0 cm LV Diastolic Volume MOD 2C 71.4 cm??? LV Systolic Volume MOD 2C 33.9 cm??? LV Ejection Fraction MOD 2C 52.5 % LV Diastolic Length 2C 7.7 cm LV Systolic Length 2C 6.1 cm LA Volume 39.6 cm??? 18 - 58 / 22 - 52 cm??? M-MODE Aortic Root Diameter MM 2.7 cm MV E Point Septal Separation 0.5 cm AV Cusp Separation MM 2.0 cm DOPPLER AV Peak Velocity 134.9 cm/s AV Peak Gradient 7.3 mmHg MV Area PHT 4.9 cm??? Mitral E Point Velocity 103.7 cm/s Mitral A Point Velocity 57.0 cm/s Mitral E to A Ratio 1.8 MV Deceleration Time 156.2 ms MV E' Velocity 10.9 cm/s Mitral E to MV E' Ratio 9.5 TR Peak Velocity 216.8 cm/s TR Peak Gradient 18.8 mmHg Right Ventricular Systolic Press 23.2 mmHg FINDINGS Left Ventricle Mildly impaired LV function with EF around 45% with lateral hypokinesia Right Ventricle Normal right ventricular size and function. Right ventricular systolic pressure within normal limits. Right Atrium Normal right atrial size. Left Atrium Normal left atrial size. Mitral Valve Structurally normal mitral valve. Trace mitral regurgitation. Aortic Valve Trileaflet aortic valve. No aortic valve stenosis or regurgitation. Tricuspid Valve Structurally normal tricuspid valve. Trace to mild tricuspid regurgitation. Pulmonic Valve Structurally normal pulmonic valve. Trace pulmonic regurgitation. Pericardium No pericardial effusion. Normal pericardium. Aorta Normal size aortic root and proximal ascending aorta. CONCLUSIONS Mildly impaired all the function with EF around 45% and lateral hypokinesia Previewed by: Dr. Mike Leon MD (Electronically Signed) Final Date: 30 November 2022 08:51
[2022-11-30] MEDS ORDERED: IOPAMIDOL-370 200ML BTL INJ ONE (08:58)
[2022-11-30] MEDS: ACETAMINOPHEN TAB 325 MG TAB PO PRN ×2 (09:34→21:03)
[2022-11-30] MEDS: PANTOPRAZOLE 40 MG/10 ML VIAL IVP SCH (12:23)
--- NOTE | 2022-11-30 12:46 | P.PN ---
Progress Note - Text Progress Note Date: 11/30/22 Patient not seen, off the floor for cardiac catheterization. The impression and plan of care has been dictated as directed. : I performed a history and examination of this patient, discussed the same with the dictator. I agree with the dictator's note ,documented as a scribe. Any additional findings or plans will be noted.
--- NOTE | 2022-11-30 19:08 | P.CARDCATH ---
Description of Procedure: PROCEDURES PERFORMED: Left heart catheterization, bilateral coronary angiography INDICATION: NSTEMI CONSENT:I have discussed the risks, benefits and alternative therapies for the above-mentioned procedure and for both sedation/analgesia as well as necessary blood product administration, if indicated, as they pertain to this patient. The patient has indicated understanding and acceptance of the risks and procedures discussed. PROCEDURE: After the risks, benefits and alternatives of the above mentioned procedure explained in detail with the patient, informed consent was obtained. Patient was taken to the catheterization lab and prepped and draped in usual fashion. A 6-Luxembourger sheath was placed in the right radial artery using modified Seldinger technique. Left coronary angiography was performed with a 5- Luxembourger JL 3.5 catheter and right coronary angiography was performed with a 5- Luxembourger JR5 catheter in various views. A 5-Luxembourger FR5 catheter was inserted into the left ventricle and pressure measurements were obtained. A TR band was placed with hemostasis achieved. The patient tolerated the procedure well. Patient was transported back to the post catheterization holding area in stable condition. Conscious Sedation: Patient was monitored under the direct supervision of myself for conscious sedation using Versed and fentanyl for a total duration of 11 minutes HEMODYNAMICS: Ao: 113/78 LV: 112/1, LVEDP 8 SELECTIVE CORONARY ARTERIOGRAPHY: LEFT MAIN: The left main is a large caliber vessel which bifurcates into the LAD and circumflex. There is no significant stenosis. LEFT ANTERIOR DESCENDING CORONARY ARTERY: LAD is a large caliber vessel which wraps around to the apex. There is no significant stenosis LEFT CIRCUMFLEX CORONARY ARTERY: Left circumflex is a moderate caliber vessel which has no significant stenosis. RIGHT CORONARY ARTERY: The right coronary artery is a large caliber vessel which gives off a PDA and PLV branch and is the dominant vessel. There is no significant stenosis FINAL IMPRESSION: 1. Normal coronary arteries as described above 2. Normal left sided filling pressures PLAN: 1. Aggressive risk factor modification per most recent ACC/AHA guidelines. 2. EKG during case more consistent with pericarditis and start therapy for myopericarditis.
[2022-11-30] MEDS ORDERED: COLCHICINE 0.6 MG EACH PO ONE (20:00)
[2022-11-30] MEDS: METOPROLOL SUCCINATE (ER) 25 MG TAB.ER.24H PO SCH (21:01)
[2022-12-01] MEDS: METOPROLOL SUCCINATE (ER) 25 MG TAB.ER.24H PO SCH (08:37)
[2022-12-01] MEDS: COLCHICINE 0.6 MG EACH PO SCH (08:37)
[2022-12-01] MEDS: PANTOPRAZOLE 40 MG/10 ML VIAL IVP SCH (08:37)
--- NOTE | 2022-12-01 10:57 | P.PN ---
Subjective Progress Note Date: 12/01/22 Patient is a pleasant 32-year-old female with significant past medical history of ADHD, to prior knee surgeries, and chronic back pain presented to the emergency department with complaints of shortness of breath, chest pressure, nausea, vomiting. She denies any significant family history of heart disease. She was never a smoker, rarely drinks alcohol, denies any drug use. For that over the past couple years she has had episodes of heart palpitations with nausea and vomiting occasionally headache. She has seen her PCP for this and has worn a 24-hour Holter monitor in the past that was reportedly unremarkable. She reports that she gets these episodes every couple months. Yesterday she was able to go to work and she got home around 4:30 PM and ate some food, 5:30 PM she felt nauseous and vomited 2, and then approximately 15 minutes later she vomited again. She denied any palpitations at that time. Then around 6:30 she began to feel short of breath but she couldn't catch her breath, developed chest pressure/ dull pain and her heart rates increased to 110s to 160s. She reports that the chest pressure lasted until about 2:30 AM. She reports having some hot flashes overnight and still is feeling mildly short of breath this morning but breathing has improved area and she denies any chest pain or pressure. Labs reviewed: Troponin 0.206, 0.433, 0.372; WBC 16.9, creatinine 0.93. CTA of the chest was negative for PE however revealed heterogeneous mass of left upper quadrant, presumably adrenal in origin, for which oncology was consulted. EKG shows sinus tachycardia 117 bpm. UA was positive for infection. 12/01 She is doing ok. Denies chest pain. Shortness of breath is stable. Heart cath 11/30 with normal coronary arteries, EKG during case was more consistent with pericarditis. ECHO with EF 45% with lateral hypokinesia. PHYSICAL EXAMINATION: This is a 32-year-old female in no apparent distress at the time of my examination. HEENT: Head is atraumatic, normocephalic. Pupils are equal, round. Sclerae anicteric. Conjunctivae are clear. Mucous membranes of the mouth are moist. Neck is supple. There is no jugular venous distention. No carotid bruit is heard. CHEST EXAMINATION: Lungs are clear to auscultation. No chest wall tenderness is noted on palpation or with deep breathing. HEART EXAMINATION: Heart regular rate and rhythm. S1, S2 heard. No murmurs, gallops or rub. ABDOMEN: Soft, nontender. Bowel sounds are heard. EXTREMITIES: 2+ peripheral pulses with no evidence of peripheral edema and no calf tenderness noted. Right radial site is clean, dry, intact, no swelling, distal pulses present. NEUROLOGIC EXAMINATION: Patient is awake, alert and oriented x3. IMPRESSION AND PLAN: Elevated troponins, normal heart cath Chest pressure Shortness of breath Left upper quadrant mass, presumable renal in origin Leukocytosis, likely related to UTI UTI Pericarditis PLAN: OK to discharge home from cardiology standpoint. Avoid competitive activities/sports. Continue cholchicine and metoprolol at discharge. Follow up ESR and CRP. Follow up in office with Dr. Corrigan in 1-2 weeks, will plan to repeat ECHO in approximately 3 months. Call with any questions. Objective - Vital Signs Vital signs: Vital Signs Temp 98.3 F 12/01/22 08:00 Pulse 86 12/01/22 08:00 Resp 20 12/01/22 08:00 BP 115/72 12/01/22 08:00 Pulse Ox 97 12/01/22 08:00 FiO2 Intake & Output 11/30/22 12/01/22 12/01/22 18:59 06:59 18:59 Intake Total 1463 118 Output Total 600 Balance 863 118 Intake: IV 100 Intake, IV Titration 525 Amount IV Fluid Continuation 1, 525 000 ml @ 0 mls/hr IV .[facility] Rx#:[id number] Oral 838 118 Output: Urine 600 Other: Voiding Method Toilet Toilet # Voids 3 1 - Labs CBC & Chem 7: 11/30/22 04:33 11/28/22 22:20
[2022-12-01 11:02] LABS: African American GFR (CKD) >90 (>60 ml/min/1.73 sqM); Anion Gap 12 mmol/L; Blood Urea Nitrogen 14 mg/dL (7-17); Calcium 9.3 mg/dL (8.4-10.2); Carbon Dioxide 26 mmol/L (22-30); Chloride 102 mmol/L (98-107); Glucose 118 mg/dL (74-99); Non-African American GFR(CKD) >90 (>60 ml/min/1.73 sqM); Potassium 3.9 mmol/L (3.5-5.1); Sodium 140 mmol/L (137-145)
[2022-12-01 12:04] LABS: C Reactive Protein 0.9 mg/dL (<1.0)
[2022-12-01] MEDS: IOPAMIDOL CONTRAST (ORAL USE) VIAL PO PRN ×2 (12:30→13:27)
--- NOTE | 2022-12-01 13:34 | P.PN ---
Subjective Progress Note Date: 12/01/22 Principal diagnosis: adrenal mass At today's visit patient is resting comfortably in bed. She reports she has shortness of breath on exertion but denies shortness of breath and resting. Denies chest pain and palpitations. S/p cath yesterday, revealed Normal coronary arteries, normal left-sided filling pressures. Cardiology following and treating patient for myopericarditis. CT abdomen and pelvis scheduled for today. Objective - Vital Signs Vital signs: Vital Signs Temp 97.9 F 12/01/22 11:20 Pulse 69 12/01/22 11:20 Resp 20 12/01/22 11:20 BP 117/72 12/01/22 11:20 Pulse Ox 100 12/01/22 11:20 FiO2 Intake & Output 11/30/22 12/01/22 12/01/22 18:59 06:59 18:59 Intake Total 1463 118 Output Total 600 Balance 863 118 Intake: IV 100 Intake, IV Titration 525 Amount IV Fluid Continuation 1, 525 000 ml @ 0 mls/hr IV .[facility] Rx#:[id number] Oral 838 118 Output: Urine 600 Other: Voiding Method Toilet Toilet # Voids 3 1 - Constitutional General appearance: Present: average body habitus, no acute distress - EENT Eyes: Present: anicteric sclerae, EOMI ENT: Present: hearing grossly normal - Respiratory Details: Breathing is even and unlabored - Cardiovascular Details: Skin warm and dry - Integumentary Integumentary: Present: normal - Neurologic Neurologic Comment(s): Grossly intact - Musculoskeletal Musculoskeletal: Present: strength equal bilaterally - Psychiatric Psychiatric: Present: A&O x's 3, appropriate affect, intact judgment & insight - Labs CBC & Chem 7: 11/30/22 04:33 12/01/22 10:13 Labs: Abnormal Lab Results - Last 24 Hours (Table) 12/01/22 Range/Units 10:13 Glucose 118 H (74-99) mg/dL Assessment and Plan (1) Adrenal mass Current Visit: Yes Status: Acute Priority: High Code(s): E27.8 - OTHER SPECIFIED DISORDERS OF ADRENAL GLAND SNOMED Code(s): 755923456 Plan: Adrenal mass: -Large 8.8x8.8x9.8 lt adrenal mass -found incidentally on CAT -CT AP ordered for better visualization, scheduled for today, due to cardiac cath yesterday -Hx suspicious for pheochromocytoma. 24 hour Urine collection for metanephrines and catacholamines ordered, as well as serum, labs pending
--- NOTE | 2022-12-01 14:33 | CT ---
EXAMINATION TYPE: CT abdomen wo con, CT abdomen pelvis w con DATE OF EXAM: 12/01/2022 HISTORY: Adrenal mass, elevated troponin, abdominal pain. CT DLP: 339.6 (accession [id number]), 989.2 (accession [id number]) mGycm. Automated Exposure Control for Dose Reduction was Utilized. TECHNIQUE: CT of the abdomen with oral but without IV contrast. CT scan of the abdomen and pelvis is then performed with IV contrast. COMPARISON: NONE FINDINGS: Within the limitations of a non-contrast study, the following observations are made. LUNG BASES: No significant abnormality is appreciated. LIVER/GB: No significant abnormality is appreciated. PANCREAS: No significant abnormality is seen. SPLEEN: No significant abnormality is seen. ADRENALS: Large heterogeneous left adrenal mass has heterogeneous postcontrast enhancement with areas of nonenhancement centrally. The inferior component has low density or thin-walled cystic portion me asuring 6.0 x 3.6 cm axial image 32 series 301. Entire mass measures approximately 9.3 x 8.6 cm axial image 27 x 8.4 cm clinical dimension coronal image 47. Local mass effect including Mass effect along the upper pole of left kidney noted on coronal and sagittal images. KIDNEYS: Possible 2 mm nonobstructing calculus right kidney medially coronal image 48. BOWEL: The oral Contrast does not breech level of terminal ileum. Small bowel feces sign and terminal ileum. No suspicious small bowel dilatation. Slightly suboptimal evaluation of distal bowel. No susp icious colonic dilatation. GENITAL ORGANS: Anteverted uterus with central metallic IUD. Symmetric normal-size ovaries LYMPH NODES: No greater than 1cm abdominal or pelvic lymph nodes are appreciated. OSSEOUS STRUCTURES: No significant abnormality is seen. OTHER: No significant additional abnormality is seen. IMPRESSION: Large heterogeneous 9.3 cm solid and cystic left adrenal mass with local mass effect worr isome for primary adrenal neoplasm. Surgical evaluation is advised.
[2022-12-01 20:39] VITALS: RESP 18
[2022-12-02] MEDS: PANTOPRAZOLE 40 MG/10 ML VIAL IVP SCH (08:43)
[2022-12-02] MEDS: METOPROLOL SUCCINATE (ER) 25 MG TAB.ER.24H PO SCH (08:43)
[2022-12-02] MEDS: COLCHICINE 0.6 MG EACH PO SCH (08:43)
--- NOTE | 2022-12-02 13:21 | P.PN ---
Subjective Progress Note Date: 12/02/22 Principal diagnosis: adrenal mass At today's visit patient is resting comfortably in bed. She reports feeling improved today. Denies chest pain, palpitations, and SOB. Vitals stable. Cardiology following and treating patient for myopericarditis. No other reported complaints Objective - Vital Signs Vital signs: Vital Signs Temp 98.3 F 12/02/22 11:50 Pulse 68 12/02/22 11:50 Resp 18 12/02/22 11:50 BP 146/75 12/02/22 11:50 Pulse Ox 98 12/02/22 11:50 FiO2 Intake & Output 12/01/22 12/02/22 12/02/22 18:59 06:59 18:59 Intake Total 118 10 0 Balance 118 10 0 Intake: IV 10 Invasive Line 1 10 Intake, IV Titration 0 Amount IV Fluid Continuation 1, 0 000 ml @ 0 mls/hr IV .[facility] Rx#:[id number] Oral 118 0 Other: Voiding Method Toilet Toilet # Voids 1 2 - Constitutional General appearance: Present: average body habitus, no acute distress - EENT Eyes: Present: anicteric sclerae, EOMI ENT: Present: hearing grossly normal - Respiratory Details: breathing is even and unlabored - Cardiovascular Details: skin is warm and dry - Integumentary Integumentary: Present: normal - Neurologic Neurologic Comment(s): grossly intact - Musculoskeletal Musculoskeletal: Present: strength equal bilaterally - Psychiatric Psychiatric: Present: A&O x's 3 - Labs CBC & Chem 7: 11/30/22 04:33 12/01/22 10:13 Labs: Abnormal Lab Results - Last 24 Hours (Table) 12/01/22 Range/Units 10:13 ESR 22 H (0-20) mm/hr - Imaging and Cardiology CT scan - abdomen: report reviewed CT scan - pelvis: report reviewed Assessment and Plan (1) Adrenal mass Current Visit: Yes Status: Acute Priority: High Code(s): E27.8 - OTHER SPECIFIED DISORDERS OF ADRENAL GLAND SNOMED Code(s): 899364998 Plan: Adrenal mass: -Large 8.8x8.8x9.8 lt adrenal mass -found incidentally on CAT -CT AP revealed large heterogenous 9.3 cm solid and cystic left adrenal mass with local mass effects worrisome for primary adrenal neoplasm -Hx suspicious for pheochromocytoma. 24 hour Urine collection for metanephrines and catacholamines ordered, as well as serum, labs pending. - Vitals stable, sx have continued to improve. We are ok with d/c at this time, as labs are still pending, and pt has been stable. Will schedule f/u for next week in clinic to review labs with patient and provide further recommendations/referrals for evaluation of adrenal mass. Pt instructed that if she begins to become symptomatic with palpitations/dizziness/SOB/ or CP, that she needs to go immediately to the ER. She verbalized understanding
--- NOTE | 2022-12-02 14:44 | P.PN ---
Subjective Progress Note Date: 12/01/22 H&P Date: 11/29/22 Chief Complaint: Nausea vomiting, tachycardia This is a 32-year-old female with past medical history significant for morbid obesity, BMI 31.1, panic attacks, ADD/ADHD and multiple other medical issues presented to the ER with complaints of nausea, vomiting and tachycardia. 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 Reports on Tuesday after work, consumed 2 bagels with cream cheese, later developed nausea and vomiting 3-4 times, laid down, symptoms eased up. Shortly thereafter developed sudden shortness of breath most notably with deep inspiration denies any palpitations but noticed on her Smart watch that her heart rate was up to 166 accompanied by hot flashes. Proceeded to the ER. On admission maintaining O2 sats in the high 90s on room air, heart rate 119, afebrile, respiratory rate 16-22, blood pressure stable. Nausea and vomiting have resolved. Denies abdominal pain. Denies cough or congestion. Denies any recent travel or being around anyone ill. Denies history of blood clots, denies being on control pills. Denies chest pain, palpitations. Denies lightheadedness, dizziness or focal deficits. Denies syncope. D-dimer 2.22,Chest CTA reported no evidence of pulmonary embolism, focal groundglass pulmonary opacities left upper lobe, heterogenous mass within the left upper quadrant presumably adrenal in origin. Chest x-ray reported no acute cardiopulmonary disease/process. EKG sinus tachycardia, heart rate 117, t roponin 0.206, 0.433, 0.372. Electrolytes within normal limits, BUN 23, creatinine 0.93, glucose 116. Coronavirus not detected, UA reporting rare bacteria, large leukocytes, negative nitrates. Maintained on heparin drip. 12/01/2022 completed heart catheterization yesterday, reported normal coronary arteries, EKG during case consistent with pericarditis as per cardiology. Echo reporting EF 45% with lateral hypokinesia. Colchicine initiated. Maintained on metoprolol. Reports mild exertional shortness of breath. Denies any chest pain, palpitations. Workup in progress for pheochromocytoma. CT of abdomen and pelvis pending. Objective - Vital Signs Vital signs: Vital Signs Temp 98.4 F 12/01/22 16:33 Pulse 76 12/01/22 16:33 Resp 20 12/01/22 16:33 BP 126/80 12/01/22 16:33 Pulse Ox 98 12/01/22 16:33 FiO2 Intake & Output 11/30/22 12/01/22 12/01/22 18:59 06:59 18:59 Intake Total 1463 118 Output Total 600 Balance 863 118 Intake: IV 100 Intake, IV Titration 525 0 Amount IV Fluid Continuation 1, 525 0 000 ml @ 0 mls/hr IV .[facility] Rx#:[id number] Oral 838 118 Output: Urine 600 Other: Voiding Method Toilet Toilet # Voids 3 1 - Exam PHYSICAL EXAM: VITAL SIGNS: [As above] GENERAL: Alert and oriented 3, Sitting up in bed, no acute distress HEENT: Normocephalic, atraumatic Conjunctivae normal. eyes normal. MMM. NECK: Supple, No JVD. CARDIOVASCULAR: S1, S2 regular. No murmur RESPIRATION: Unlabored, Breath sounds diminished in the bases. ABDOMEN: Soft, nontender, nondistended. No guarding.no rigidity.Bowel sounds heard. LEGS: No edema. no swelling NERVOUS SYSTEM: Cranial N 2-12 grossly normal.No focal deficits. Strength and sensation grossly intact. Skin: Warm and dry, no rash - Labs CBC & Chem 7: 11/30/22 04:33 12/01/22 10:13 Labs: Abnormal Lab Results - Last 24 Hours (Table) 12/01/22 12/01/22 Range/Units 10:13 10:13 ESR 22 H (0-20) mm/hr Glucose 118 H (74-99) mg/dL Assessment and Plan Assessment: Sinus tachycardia, elevated troponins, status post normal cardiac cath., Pericarditis Incidental finding large adrenal mass, ruling out pheochromocytoma Morbid obesity, BMI 31.1 Anxiety, panic attacks, history of Plan: Continue on current medication regime ,monitoring and symptomatic treatment. CT abdomen and pelvis pending.Pheochromocytoma workup in progress. Cleared by cardiology for discharge. Discharge planning in progress pending CT of abdomen and pelvis. The impression and plan of care has been dictated as directed. : I performed a history and examination of this patient, discussed the same with the dictator. I agree with the dictator's note ,documented as a scribe. Any additional findings or plans will be noted.
[2022-12-02 16:44] VITALS: BP 114/80; PULSE 70; TEMP 98.2
--- NOTE | 2022-12-02 16:45 | P.GSCN ---
History of Present Illness Consult date: 12/02/22 Reason for Consult: Left adrenal mass Requesting physician: Rasheed Srivastava History of present illness: The patient is a 32-year-old white female who presented with nausea, vomiting, dyspnea, chest pain, palpitations, and diaphoresis. She has experienced similar episodes in the past, consisting of palpitations, nausea, vomiting, and headache.. Evaluation in the ER showed evidence of tachycardia and elevated troponin levels. Review of Systems - Cardiovascular Reports chest pain, Reports palpitations - Respiratory Reports dyspnea - Gastrointestinal Reports nausea, Reports vomiting Past Medical History Additional Past Medical History / Comment(s): twisted disc in back, arthritis of R. knee/shoulder/elbow, Multiple bone tumors (noncancerous), panic attacks History of Any Multi-Drug Resistant Organisms: MRSA Year Discovered:: 2001 MDRO Source:: Legs Past Surgical History: Orthopedic Surgery Additional Past Surgical History / Comment(s): ortho surgery x2 Past Anesthesia/Blood Transfusion Reactions: Unable to Obtain Past Psychological History: ADD/ADHD Additional Psychological History / Comment(s): panic attacks Smoking Status: Never smoker Past Alcohol Use History: None Reported Past Drug Use History: None Reported - Past Family History Mother Additional Family Medical History / Comment(s): uterine or cervical cancer Medications and Allergies Home Medications Medication Instructions Recorded Confirmed Type Colchicine [Colcrys] 0.6 mg PO DAILY #10 each 12/01/22 Rx Metoprolol Succinate (ER) [Toprol 12.5 mg PO DAILY #30 tab 12/01/22 Rx XL] Pantoprazole [Protonix] 40 mg PO DAILY #14 tab 12/01/22 Rx Allergies Allergy/AdvReac Type Severity Reaction Status Date / Time Opioids - Morphine Analogues AdvReac Rapid Verified 11/29/22 06:52 Heart Rate Surgical - Exam Vital Signs Temp Pulse Resp BP Pulse Ox 98.3 F 119 H 22 123/68 96 11/28/22 21:12 11/28/22 21:12 11/28/22 21:12 11/28/22 21:12 11/28/22 21:12 - General well developed, well nourished, no distress - Neck no masses, trachea midline - Respiratory normal respiratory effort - Abdomen Abdomen: soft, non tender, no guarding, no rigid, no rebound - Psychiatric oriented to time, oriented to person, oriented to place, speech is normal, memory intact Results - Labs 11/30/22 04:33 12/01/22 10:13 - Imaging CT scan - abdomen: report reviewed, image reviewed Assessment and Plan Assessment: The left adrenal mass measures 8.6 x 9.3 cm in size. Adrenal lesions exceeding 6 cm have an increased risk of malignancy. Some adrenal neoplasms, both benign and malignant, are functional and the patient's symptoms are suggestive of a pheochromocytoma. 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 If pheochromocytoma is ruled out, a cortisol producing tumor will need to be ruled out as well. Once the patient has been properly evaluate d, she will require a left adrenalectomy at a tertiary care center (unless it is determined that this is a metastatic lesion). Time with Patient: Greater than 30
--- NOTE | 2022-12-03 13:25 | P.DS ---
Providers Date of admission: 11/29/22 01:05 Expected date of discharge: 12/02/22 Attending physician: Leon Rhoades MD Consults: 11/29/22 00:33 Consult Physician Urgent Consulting Provider: Ted Turk Consult Reason/Comments: Adrenal mass Do you want consulting provider notified?: Yes, Notify in am 12/01/22 16:27 Consult Physician Routine Consulting Provider: Allen Patel Consult Reason/Comments: adrenal mass Do you want consulting provider notified?: Yes Primary care physician: Tiffani Rhoades Hospital Course: Sinus tachycardia, elevated troponins, status post normal cardiac cath., Pericarditis Incidental finding large adrenal mass, worrisome for primary adrenal neoplasm ,ruling out pheochromocytoma, oncology following Morbid obesity, BMI 31.1 Anxiety, panic attacks, history of Hospital course:This is a 32-year-old female with past medical history significant for morbid obesity, BMI 31.1, panic attacks, ADD/ADHD and multiple other medical issues presented to the ER with complaints of nausea, vomiting and tachycardia. Reports family history of FISHER TERRAPIN. Reports on Tuesday after work, consumed 2 bagels with cream cheese, later developed nausea and vomiting 3-4 times, laid down, symptoms eased up. Shortly thereafter developed sudden shortness of breath most notably with deep inspiration denies any palpitations but noticed on her Smart watch that her heart rate was up to 166 accompanied by hot flashes. Proceeded to the ER. On admission maintaining O2 sats in the high 90s on room air, heart rate 119, afebrile, respiratory rate 16-22, blood pressure stable. Nausea and vomiting have resolved. Denies abdominal pain. Denies cough or congestion. Denies any recent travel or being around anyone ill. Denies history of blood clots, denies being on control pills. Denies chest pain, palpitations. Denies lightheadedness, dizziness or focal deficits. Denies syncope. D-dimer 2.22,Chest CTA reported no evidence of pulmonary embolism, focal groundglass pulmonary opacities left upper lobe, heterogenous mass within the left upper quadrant presumably adrenal in origin. Chest x-ray reported no acute cardiopulmonary disease/process. EKG sinus tachycardia, heart rate 117, troponin 0.206, 0.433, 0.372. Electrolytes within normal limits, BUN 23, creatinine 0.93, glucose 116. Coronavirus not detected, UA reporting rare bacteria, large leukocytes, negative nitrates. Maintained on heparin drip. 12/01/2022 completed heart catheterization yesterday, reported normal coronary arteries, EKG during case consistent with pericarditis as per cardiology. Echo reporting EF 45% with lateral hypokinesia. Colchicine initiated. Maintained on metoprolol. Reports mild exertional shortness of breath. Denies any chest pain, palpitations. Workup in progress for pheochromocytoma. CT of abdomen and pelvis pending. AP CT reported large heterogenous 9.3 cm solid and cystic left adrenal mass with local mass effects worrisome for primary adrenal neoplasm. Pheochromocytoma workup in progress, to be followed up outpatient in clinic. Patient to follow up outpatient next week with oncology regarding adrenal mass-regarding further recommendations. Significant clinical improvement, cleared by cardiology, oncology for discharge. Patient will be discharged home today in a stable condition with guarded prognosis pending evaluation, recommendations and clearance per urology. The impression and plan of care has been dictated as directed. : I performed a history and examination of this patient, discussed the same with the dictator. I agree with the dictator's note ,documented as a scribe. Any additional findings or plans will be noted. Patient Condition at Discharge: Stable Plan - Discharge Summary New Discharge Prescriptions: New Colchicine [Colcrys] 0.6 mg PO DAILY #10 each Metoprolol Succinate (ER) [Toprol XL] 12.5 mg PO DAILY #30 tab Pantoprazole [Protonix] 40 mg PO DAILY #14 tab Discharge Medication List Colchicine [Colcrys] 0.6 mg PO DAILY #10 each 12/01/22 [Rx] Metoprolol Succinate (ER) [Toprol XL] 12.5 mg PO DAILY #30 tab 12/01/22 [Rx] Pantoprazole [Protonix] 40 mg PO DAILY #14 tab 12/01/22 [Rx] Follow up Appointment(s)/Referral(s): Ted Turk MD [STAFF PHYSICIAN] - 12/08/22 1:15 pm Allen Patel MD [STAFF PHYSICIAN] - 1 Week (please call to schedule your appt. reached after hours ) Tiffani Rhoades DO [Primary Care Provider] - 3 Days (please call to schedule an appt. ) Patient Instructions/Handouts: Acute Pericarditis (DC), Heart Catheterization (DC) Activity/Diet/Wound Care/Special Instructions: Pericarditis management as per cardiology Discharge Disposition: HOME SELF-CARE
[2022-12-06 13:00] LABS: Dopamine 24 Hr Urine 805 ug/day (65-400); Epinephrine 24 Hr Urine 30 ug/day (0-20); Norepinephrine 24 Hr Urine 473 ug/day (15-80); Total Catecholamines Urine 503 ug/day (15-100); Urine Creatinine,24 Hr 1.4 gm/24h (0.8-1.8)
[2022-12-06 13:07] LABS: Metanephrines 24 Hour,Urine 1401 ug/day (52-341); Normetanephrine 24 Hour,Urine 15255 ug/day (88-444); Total Metanephrines 24 Hour,Ur 16656 ug/day (140-785); Urine Creatinine, 24 Hr 1.4 gm/24h (0.8-1.8)
== END 2022-12-02 18:15 | disposition home or self-care (01) | DRG 192 ==
LOC: EC 21:03 → 3SCARD 11-29 01:05
PROVIDERS: ADMIT Family Medicine; ATTEND Family Medicine
PROC: B2111ZZ Fluoroscopy of Multiple Coronary Arteries using Low Osmolar Contrast (ICD-10-PCS; principal; 2022-11-30 07:30)
PROC: 4A023N7 Measurement of Cardiac Sampling and Pressure, Left Heart, Percutaneous Approach (ICD-10-PCS; principal; 2022-11-30 07:30)
DX: I31.9 Disease of pericardium, unspecified (principal); D35.02 Benign neoplasm of left adrenal gland; F41.0 Panic disorder [episodic paroxysmal anxiety]; M17.11 Unilateral primary osteoarthritis, right knee; M19.029 Primary osteoarthritis, unspecified elbow; M19.019 Primary osteoarthritis, unspecified shoulder; M51.9 Unspecified thoracic, thoracolumbar and lumbosacral intervertebral disc disorder; G89.29 Other chronic pain; M54.89 Other dorsalgia; F90.9 Attention-deficit hyperactivity disorder, unspecified type; I24.8 Other forms of acute ischemic heart disease; N39.0 Urinary tract infection, site not specified; Z80.49 Family history of malignant neoplasm of other genital organs; E66.01 Morbid (severe) obesity due to excess calories; Z68.31 Body mass index [BMI] 31.0-31.9, adult; R00.0 Tachycardia, unspecified; Z28.310 Unvaccinated for COVID-19; Z28.21 Immunization not carried out because of patient refusal; Z88.5 Allergy status to narcotic agent; Z86.14 Personal history of Methicillin resistant Staphylococcus aureus infection; D16.9 Benign neoplasm of bone and articular cartilage, unspecified; Z20.822 Contact with and (suspected) exposure to COVID-19
CPT/HCPCS: 36415; 71046; 71275; 74150; 74177; 76937; 80048; 80053; 81001; 81025; 82384; 82533; 83605; 83735; 83835; 84484; 84585; 85025; 85379; 85610; 85652; 85730; 86140; 87635; 93005; 93306; 93458; 96361; 96365; 96375; 99285